=== PATIENT | female | born 1945 | race Caucasian/White ===

== ENCOUNTER → 2024-03-25 | Outpatient (CLI) | payer MEDICARE, MEDICAID, SELFPAY ==
[2024-03-31 06:10] LABS: Alternaria tenuis <0.10 kU/L (Class 0); Ash, White <0.10 kU/L (Class 0); Aspergillus fumigatus <0.10 kU/L (Class 0); Beef <0.10 kU/L (Class 0); Bermuda Grass <0.10 kU/L (Class 0); Birch <0.10 kU/L (Class 0); Black Walnut <0.10 kU/L (Class 0); Cat Hair / Dander,Stand <0.10 kU/L (Class 0); Cedar, Mountain <0.10 kU/L (Class 0); Chocolate <0.10 kU/L (Class 0); Cladosporium herbarum <0.10 kU/L (Class 0); Cockroach, American <0.10 kU/L (Class 0); Codfish <0.10 kU/L (Class 0); Corn <0.10 kU/L (Class 0); Cottonwood <0.10 kU/L (Class 0); D farinae Mite <0.10 kU/L (Class 0); D pteronyssinus <0.10 kU/L (Class 0); Dog Epithelia <0.10 kU/L (Class 0); Egg, Whole <0.10 kU/L (Class 0); Elm, American White <0.10 kU/L (Class 0); Immunoglobulin E < 2 IU/mL (6-495); Maple/Box Elder <0.10 kU/L (Class 0); Milk (Cow) <0.10 kU/L (Class 0); Mouse Urine <0.10 kU/L (Class 0); Mulberry, White <0.10 kU/L (Class 0); Mussels <0.10 kU/L (Class 0); Oak, White <0.10 kU/L (Class 0); Peanut <0.10 kU/L (Class 0); Pecan <0.10 kU/L (Class 0); Penicillium Notatum <0.10 kU/L (Class 0); Pigweed, Rough <0.10 kU/L (Class 0); Pork <0.10 kU/L (Class 0); Ragweed, Short/Common <0.10 kU/L (Class 0); Russian Thistle <0.10 kU/L (Class 0); Salmon <0.10 kU/L (Class 0); Sheep Sorrel <0.10 kU/L (Class 0); Shrimp <0.10 kU/L (Class 0); Soybean <0.10 kU/L (Class 0); Sycamore, American <0.10 kU/L (Class 0); Timothy Grass <0.10 kU/L (Class 0); Tuna <0.10 kU/L (Class 0); Wheat <0.10 kU/L (Class 0)
== END | disposition home or self-care (01) ==
LOC: MTLAB 13:28
PROVIDERS: PCP Family Medicine; Referring Provider Family Medicine; Visit Provider Family Medicine
DX: T78.40XA Allergy, unspecified, initial encounter (principal)
CPT/HCPCS: 36415; 82785; 86003; 86005

== ENCOUNTER → 2024-04-01 | Outpatient (CLI) | payer MEDICARE, MEDICAID, SELFPAY ==
--- NOTE | 2024-04-01 11:07 | RAD_ITS ---
EXAM: XR CHEST, 2 VIEWS CLINICAL INDICATION: CHEST PAIN TECHNIQUE: Frontal and lateral views of the chest. COMPARISON: No relevant prior studies available. FINDINGS: LUNGS AND PLEURAL SPACES: Mild pulmonary hyperinflation and flattening of the hemidiaphragms. Right upper lobe emphysema. No suspicious interstitial infiltrates, consolidation or edema. No pneumothorax. No effusion. HEART: Cardiomegaly. MEDIASTINUM: Central airways and mediastinal contour are unremarkable. BONES/JOINTS: Unremarkable. No acute fracture. SOFT TISSUES: Unremarkable. RAD/Chest PA and Lateral IMPRESSION: 1. No acute cardiopulmonary pathology. 2. COPD with right upper lobe emphysema. 3. Cardiomegaly. Electronically Signed: Tito Barone MD at 15:39 EDT ,
[2024-04-01 12:15] LABS: Absolute Lymphocyte Count 1.25 X10^3/uL (0.83-4.51); Absolute Neutrophil Count 4.5 X10^3/uL (2.0-7.7); Basophil# 0.05 X10^3/uL; Basophil% 0.8 % (0-1); Eosinophil# 0.08 X10^3/uL; Eosinophils% 1.2 % (0-5); Hemoglobin 12.2 g/dL (12.0-15.0); Lymphocyte # 1.25 X10^3/ul (0.83-4.51); Lymphocyte % 19.4 % (19-41); Mean Corp Hgb Conc 31.3 g/dL (32-36); Mean Corpuscular Hgb 29.4 pg (27.0-32.0); Mean Platelet Vol. 11.3 fl (6.2-12.0); Monocyte# 0.54 X10^3/uL; Monocyte% 8.4 % (0-10); NRBC Flagged by Analyzer 0 % (0-5); Platelet Count 281 K/mm3 (150-450); RBC Distribution Width CV 14.3 % (11.6-14.6); RBC Distribution Width SD 49.1 fl (35.1-43.9); Red Blood Count 4.15 M/mm3 (4.2-5.4); White Blood Count 6.4 K/mm3 (4.4-11.0)
[2024-04-01 15:40] LABS: AST(SGOT) 23 U/L (15-37); Alanine Aminotransfer ALT/SGPT 22 U/L (13-56); Albumin, Serum 3.5 g/dL (3.2-5.0); Alkaline Phosphatase 77 U/L (45-117); Anion Gap 5 (5-15); BUN 31 mg/dL (7-18); BUN/Creat Ratio 57.6 RATIO (10-20); Calcium,Total 9.3 mg/dL (8.5-10.1); Chloride 105 mmol/L (98-107); Creatinine, Serum 0.54 mg/dL (0.55-1.02); EST Glomerular Filtration Rate 117 mL/min (>60); Est Glom Filt Rate - Afr Amer 142 mL/min (>60); Globulin 3.6 g/dL (2.2-4.2); Glucose 102 mg/dL (74-106); Potassium 4.2 mmol/L (3.5-5.1); Protein, Total 7.1 g/dL (6.4-8.2); Sodium Level 138 mmol/L (136-145); Thyroid Stim Hormone (TSH) 0.992 uIU/mL (0.358-3.740); Troponin-I HS 8 pg/mL (3.0-54.0)
== END | disposition home or self-care (01) ==
PROVIDERS: PCP Family Medicine; Referring Provider Family Medicine; Visit Provider Family Medicine
DX: R07.9 Chest pain, unspecified (principal)
CPT/HCPCS: 36415; 71046; 80053; 84443; 84484; 85025

== ENCOUNTER → 2024-10-12 | Outpatient (CLI) | payer MEDICARE, MEDICAID, SELFPAY ==
--- NOTE | 2024-10-12 08:53 | RAD_ITS ---
PROCEDURE: LUMBAR SPINE 2 OR 3 VIEWS 10/12/2024 REASON FOR EXAM: BACK PAIN TECHNIQUE: 2 view(s) of the lumbar spine COMPARISON: None. FINDINGS: Mild degenerative dextroscoliosis apex at L3. Grade 1 anterolisthesis of L4 on L5 secondary to bilateral pars defects. Grade 1 anterolisthesis of L5 on S1 secondary to facet joint arthropathy. Mildly exaggerated lumbar lordosis. Diffuse spondylotic changes, more prominent at L4-L5 and L5-S1 levels. No fracture or dislocation is seen. No lytic or blastic aggressive bone lesion is identified. RAD/Lumbar Spine 2 or 3 Views IMPRESSION: Spondylosis. Exaggerated lumbar lordosis. Mild degenerative dextroscoliosis apex at L3. Reading Location: [facility]
== END | disposition home or self-care (01) ==
LOC: MTRAD 08:53
PROVIDERS: PCP Family Medicine; Referring Provider Family Medicine; Visit Provider Family Medicine
DX: M51.369 Other intervertebral disc degeneration, lumbar region without mention of lumbar back pain or lower extremity pain (principal)
CPT/HCPCS: 72100

== ENCOUNTER 2024-11-08 07:30 | Outpatient (RCR) | payer MEDICARE, MEDICAID, SELFPAY ==
--- NOTE | 2024-11-02 11:14 | HP.PTEVAL_ITS ---
Patient's Visit Information Visit Information Visit Information: DIANNE ACUNA is a 79 year old F referred to Physical Therapy by Buddy Hernández MD with a diagnosis of DDD. Date of Evaluation: 11/02/24 Physical Therapist: Manfred Gibbs, BERNARDOT, OCS, CSCS Visit Plan Frequency: 2-3x /Week Duration: 4-6 Weeks Plan: has medical condition where she needs to be extremely careful with chemicals, fragrances, allergies, skin contact and cleaning solutions and will communicate this to us as she goes. Do not use other chemicals on her body without asking her including TB. Sh loves educating us about it. 2-3x/week for 4 weeks for IE HEP: PPT 10x, trunk rotation 10x, quad stretch 30 5x all 2x/day adn find neutral spine upon standing. Ho given Please treat with NS, start with back ROM all directions and HS stretching to HEP then out to gym to teach .core, postural and LE strength all in NS position and work to [place] I. with lists. Subjective Subjective: Goes by [employer] Has chronic back pain. Scoliosis and pain. It is worsening with more lifting and walking lately. Just recently moved to [place] from [place]. De generation and curvature causing pain. Pain is 0-4/10 worse with standing , walking lifting. R?L LB into posterior hip. It can linger if she stands too long then heating pad helps.No numb ness or tingling or leg symptoms. Sleep is OK. Not employed. Spends day: take care of new cat adn is unpacking from the move into mobile home. Cans and freezes her food. Does some regular exercises [facility] prior to [facility] but not since covid. 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 On meds and does meditation and acupuncture, No precautions for heart. Pain LBP: Pain Intensity (Out of 10): 0 Pain Intensity Range: 0 and 4 Comment: rains, lifting, walking too far Objective Objective: Pt walks into PT I with cane but does not need it. Safe with balance. Transfers chair and bed I. steps with one rail reciprocally up and down adn L weaker than R .LB AROM ext mod limtied no pain,flexion mod to max limited and feels weak in the legs, R SB limited greater than L, no pain, just tight B. Posture is kyphotic in thoracic are and flat lordosis, scoliosis evident with concavity Rthoracic. HS mod tight at -25 90/90 tests. - slump and - SLR. knee adn hip adn ankle aROM WFL B. reflexes 2/3 patella adn achilles B. Sensation TERRY WNL to gross light touch. core strength 3+ abs and extensors but obviously unstable in seated testing. hip abd and eext adn flexion 3+ B. knee flexion and ext 4- B. ankles 4/5 [address] directions. Balance/Special Test Scores Oswestry Low Back Score: 10 Goals Goal 1:: I appropriate gym strength and home ROM and streteching for LB and legs Goal Time Frame: 4-6 Weeks Goal 2:: Pain in LB 0-1/10 at worst and 80% improved. Goal Time Frame: 4-6 Weeks Goal 3:: steps reciprocal with one rail and no evidence of weakness Goal Time Frame: 4-6 Weeks Goal 4:: oswestry score 3 or better Goal Time Frame: 4-6 Weeks Rehabilitation Potential Physical Therapy Diagnosis: DDD and degeneration spine poorly managed with ex and getting weeak with activity. appropriate for PT. Rehabilitation Potential: Fair Anticipated Interventions Patient/Client Instruction: Educate patient on: Condition and Plan of Care For the Purpose of:: To decrease pain, To increase ROM, To improve nutrient delivery to tissue, To improve muscle performance and motor function and To increase tolerance to activity/condition/position Therapeutic Exercise to Include: Strength training, Postural training, Flexibilty training, Passive ROM and Active ROM For the Purpose of:: To decrease pain, To increase ROM, To improve nutrient delivery to tissue, To improve muscle performance and motor function, To increase tolerance to activity/condition/position and To improve ability of physical actions for home/community/work/leisure Text: Thank you for the opportunity to evaluate your patient. For Medicare and Medicare HMO plans, please review the plan of care and approve it. It will need to be FAXED BACK to us at [phone] for Medicare purposes. For Medicare only, by signing this I certify the plan of care. Please let me know if there are questions or concerns regarding this plan of care. Physician Signature: Date:
--- NOTE | 2025-01-06 13:16 | HP.PT.NRP ---
Patient Information Patient Information: DIANNE ACUNA was seen in my office for initial evaluation on 11/02/24. The following Plan of Care was established for this patient: POC Established Initial Frequency: 2-3x /Week Initial Duration: 4-6 Weeks Anticipated Interventions Patient/Client Instruction: Educate patient on: Condition and Plan of Care For the Purpose of:: To decrease pain, To increase ROM, To improve nutrient delivery to tissue, To improve muscle performance and motor function and To increase tolerance to activity/condition/position Therapeutic Exercise to Include: Strength training, Postural training, Flexibilty training, Passive ROM and Active ROM For the Purpose of:: To decrease pain, To increase ROM, To improve nutrient delivery to tissue, To improve muscle performance and motor function, To increase tolerance to activity/condition/position and To improve ability of physical actions for home/community/work/leisure Last Seen Last Seen: This patient was last seen in our office 11/08/24. Pertinent comments regarding their Physical therapy will appear below: Pt seen two visits of POC but did not schedule or attend any further. At this point, it has been nearly two months and I will discontinue from my care. At this point I will be discontinuing this patient from physical therapy. I would be happy to see this patient again in the future if found appropriate by the physician. Thank you! Manfred Gibbs, DPT, OCS, CSCS Balance/Gait/Functional tests Balance/Special Test Scores Oswestry Low Back Score: 10
== END 2024-11-08 19:00 | disposition home or self-care (01) ==
LOC: PT 07:30
PROVIDERS: PCP Family Medicine; Referring Provider Family Medicine; Visit Provider Family Medicine
DX: M51.34 Other intervertebral disc degeneration, thoracic region (principal)
CPT/HCPCS: 97110; 97162